=== PATIENT | female | born 1985 | race African-American/Black ===

== ENCOUNTER 2018-05-31 13:15 | Emergency (ER) | payer OTHER ==
[2018-05-31 13:25] VITALS: BP 111/65; PULSE 91; TEMP 98.1; BMI 21.6
--- NOTE | 2018-05-31 13:37 | PDOC ---
History of Present Illness - General Chief Complaint: Asthma Stated Complaint: ASTHAM Time Seen by Provider: 05/31/18 13:30 History Source: Patient Exam Limitations: No Limitations - History of Present Illness Initial Comments: 05/31/18 13:43 32 yr female with c/o cough chest tightness for 2 days no fever no chills. Pt was around a dog and cat 2 days ago had coughing then. no history of intubations. Past History - Past Medical History Allergies/Adverse Reactions: Allergies Allergy/AdvReac Type Severity Reaction Status Date / Time No Known Allergies Allergy Verified 05/31/18 13:20 Home Medications: Ambulatory Orders Albuterol Sulfate Inhaler - [Ventolin Hfa Inhaler -] 1 - 2 inh PO Q4H #1 inhaler 05/31/18 Asthma: Yes COPD: No - Suicide/Smoking/Psychosocial Hx Smoking History: Never smoked Respiratory Specific PMHX - Complaint Specific PMHX Angina: No Bronchitis: No Pneumonia: No Pulmonary Embolus: No TB (Tuberculosis): No Review of Systems - Review of Systems Able to Perform ROS?: Yes Is the patient limited Japanese proficient: No Constitutional: No: Symptoms Reported HEENTM: No: Symptoms Reported Respiratory: Yes: Cough *Physical Exam - Vital Signs Last Vital Signs Temp Pulse Resp BP Pulse Ox 98.1 F 91 H 16 111/65 100 05/31/18 13:21 05/31/18 13:21 05/31/18 13:21 05/31/18 13:21 05/31/18 13:21 - Physical Exam General Appearance: Yes: Nourished, Appropriately Dressed HEENT: positive: EOMI, APOORVA Neck: positive: Supple. negative: Tender Respiratory/Chest: positive: Lungs Clear, Normal Breath Sounds, Decreased Breath Sounds (all marcus). negative: Chest Tender, Rhonchi, Stridor, Wheezing , Hyperresonant Medical Decision Making - Medical Decision Making 05/31/18 13:47 cc: cough for 2 days no fever , no chills. no vomiting or abd pain will give duoneb now pt speaking full sentences no distress *DC/Admit/Observation/Transfer Diagnosis at time of Disposition: Asthma Qualifiers: Asthma severity: mild Asthma persistence: intermittent Asthma complication type : with acute exacerbation Qualified Code(s): J45.21 - Mild intermittent asthma with (acute) exacerbation - Discharge Dispostion Disposition: HOME Condition at time of disposition: Improved - Prescriptions Prescriptions: Albuterol Sulfate Inhaler - [Ventolin Hfa Inhaler -] 1 - 2 inh PO Q4H #1 inhaler - Referrals - Patient Instructions Printed Discharge Instructions: Asthma -- Adult Additional Instructions: drink pleanty of water take claritin or lópez for any sneezing , itchy throat or allergy symptoms use the inhaler every 4hrs for the next 2-3 days follow with your doctor on FRIDAY or FRIDAY Return to ER for any worsening symptoms - Post Discharge Activity
[2018-05-31] MEDS ORDERED: ALBUTEROL SO4 2.5/IPRATROPIUM 0.5 INH SOL 3 ML VIAL.NEB. NEB ONE ×2 (13:42→13:48)
== END 2018-05-31 14:30 | disposition home or self-care (01) ==
LOC: JERFT 13:15
PROC: 3E0F7GC Introduction of Other Therapeutic Substance into Respiratory Tract, Via Natural or Artificial Opening (ICD-10-PCS; principal; 2018-05-31)
DX: J45.21 Mild intermittent asthma with (acute) exacerbation (principal)
CPT/HCPCS: 99281-25

== ENCOUNTER 2018-07-11 20:53 | Emergency (ER) | payer SELFPAY ==
[2018-07-11 21:18] VITALS: BP 106/70; PULSE 84; TEMP 97.4; BMI 21.6
[2018-07-11] MEDS ORDERED: ALBUTEROL SO4 2.5/IPRATROPIUM 0.5 INH SOL 3 ML VIAL.NEB. NEB ONE (21:31)
[2018-07-11] MEDS: ALBUTEROL SO4 2.5/IPRATROPIUM 0.5 INH SOL 3 ML VIAL.NEB. NEB SCH ×4 (21:33→22:17)
--- NOTE | 2018-07-11 21:34 | PDOC ---
History of Present Illness - General Chief Complaint: Cold Symptoms Stated Complaint: ASTHMA,DIFFICULTY BREATHING Time Seen by Provider: 07/11/18 21:17 History Source: Patient Exam Limitations: No Limitations - History of Present Illness Initial Comments: 07/11/18 21:29 HISTORY OF PRESENT ILLNESS: This is a 32-year-old woman past medical history of asthma without any history of intubations or hospital admissions presents emergency department for evaluation of shortness of breath and dry cough for the past 3 days. Patient reports nasal congestion and rhinorrhea but denies any sore throats, headaches, fevers, chills No recent travel or sick contacts. PAST MEDICAL HISTORY: asthma SURGICAL HISTORY: Denies ALLERGIES: No known drug allergies REVIEW OF SYSTEMS General/Constitutional: Denies fever or chills. Denies weakness, weight change. HEENT: Denies change in vision. Denies ear pain or discharge. Denies sore throat. +nasal congestion and rhinorrhea Cardiovascular: Denies chest pain or shortness of breath. Respiratory: Dry cough with audible wheezing. Denies hemoptysis. Gastrointestinal: Denies nausea, vomiting, diarrhea or constipation. Denies rectal bleeding. Genitourinary: Denies dysuria, frequency, or change in urination. Musculoskeletal: Denies joint or muscle swelling or pain. Denies neck or back pain. Skin and breasts: Denies rash or easy bruising. Neurologic: Denies headache, vertigo, loss of consciousness, or loss of sensation. Psychiatric: Denies depression or anxiety. Endocrine: Denies increased thirst. Denies abnormal weight change. Hematologic/Lymphatic: Denies anemia, easy bleeding, or history of blood clots. Allergic/Immunologic: Denies hives or skin allergy. Denies latex allergy. PHYSICAL EXAM General Appearance: Well-appearing, appropriately dressed. No apparent distress , no intoxication. HEENT: EOMI, PERRLA, normal ENT inspection, normal voice, TMs normal, pharynx normal. No conjunctival pallor. No photophobia, scleral icterus. Nasal congestion. Neck: Supple. Trachea midline. No tenderness, rigidity, carotid bruit, stridor , lymphadenopathy, or thyromegaly. Respiratory/Chest: Lungs CTAB. No shortness of breath, chest tenderness, respiratory distress, accessory muscle use. No crackles, rales, rhonchi, stridor , dullness. +Inspiratory wheezing. Speaking in full sentences. Cardiovascular: RRR. S1, S2. No JVD, murmur, bradycardia, tachycardia. Integumentary: Appropriate color, dry, warm. No cyanosis, erythema, jaundice or rash Past History - Past Medical History Allergies/Adverse Reactions: Allergies Allergy/AdvReac Type Severity Reaction Status Date / Time No Known Allergies Allergy Verified 07/11/18 21:16 Home Medications: Ambulatory Orders Albuterol Sulfate Inhaler - [Ventolin Hfa Inhaler -] 1 - 2 inh PO Q4H #1 inhaler 05/31/18 Prednisone [Prednisone 50 MG TABLETS] 50 mg PO DAILY #4 tablet 07/11/18 Asthma: Yes COPD: No - Suicide/Smoking/Psychosocial Hx Smoking History: Never smoked Have you smoked in the past 12 months: No Information on smoking cessation initiated: No Hx Alcohol Use: No Drug/Substance Use Hx: No Respiratory Specific PMHX - Complaint Specific PMHX Angina: No Bronchitis: No Pneumonia: No Pulmonary Embolus: No TB (Tuberculosis): No *Physical Exam - Vital Signs Last Vital Signs Temp Pulse Resp BP Pulse Ox 97.4 F L 84 16 106/70 100 07/11/18 21:14 07/11/18 21:14 07/11/18 21:14 07/11/18 21:14 07/11/18 21:14 Moderate Sedation - Procedure Monitoring Vital Signs: Procedure Monitoring Vital Signs Temperature 97.4 F L 07/11/18 21:14 Pulse Rate 84 07/11/18 21:14 Respiratory Rate 16 07/11/18 21:14 Blood Pressure 106/70 07/11/18 21:14 O2 Sat by Pulse Oximetry (%) 100 07/11/18 21:14 Medical Decision Making - Medical Decision Making 07/11/18 21:32 A/P: 32-year-old woman with acute shortness of breath over 2 days Nasal congestion present Speaking full sentences Scattered Expiratory wheezes present No accessory muscle use Skin appropriate color, warm, dry. Likely asthma exacerbation brought on by upper respiratory infection. Urine , prednisone, DuoNeb's, reassess 07/11/18 22:32 Repeat lung exam reveals clear lungs. Patient reports less work of breathing. Patient is ambulatory without any shortness of breath. Patient states she feels better and is requesting discharge at this time. I'll discharge the patient home with prescription for prednisone 4 days instructions to follow-up with her primary doctor. Patient reports she has a prescription for her metered-dose inhaler and does not require new prescription. I discussed the physical exam findings, ancillary test results and final diagnoses with the patient. I answered all of the patient's questions. The patient was satisfied with the care received and felt comfortable with the discharge plan and treatment plan. The patient will call their primary care physician within 24 hours to arrange follow-up and will return to the Emergency Department with any new, persistent or worsening symptoms. *DC/Admit/Observation/Transfer Diagnosis at time of Disposition: Asthma Qualifiers: Asthma severity: mild Asthma persistence: intermittent Asthma complication type : with acute exacerbation Qualified Code(s): J45.21 - Mild intermittent asthma with (acute) exacerbation URI (upper respiratory infection) Qualifiers: URI type: unspecified viral URI Qualified Code(s): J06.9 - Acute upper respiratory infection, unspecified - Discharge Dispostion Disposition: HOME Condition at time of disposition: Fair Decision to Admit order: No - Prescriptions Prescriptions: Prednisone [Prednisone 50 MG TABLETS] 50 mg PO DAILY #4 tablet - Referrals - Patient Instructions Printed Discharge Instructions: DI for Asthma -- Adult, DI for Viral Upper Respiratory Infection -- Adult Additional Instructions: Rest, drink lots of fluids: Teas, water, soups, Pedialyte Saltwater gargles Steamy showers/seem to face break up mucus Avoid contact with others until fevers and cough resolved Lots of handwashing and good hygiene Continue [id number] medications for symptomatic relief Tylenol or Motrin for fever and pain Continue albuterol pump every 4-6 hours for the next 2 days as needed Prednisone as directed until completed Followup with private physician in one to 2 days Return to emergency department / pediatric hospital for worsened symptoms, fevers, dehydration - Post Discharge Activity
[2018-07-11] MEDS ORDERED: predniSONE 20 MG TABLET (UD) PO ONE (22:07)
[2018-07-11] MEDS ORDERED: predniSONE 20 MG TABLET (UD) ONE (22:11)
== END 2018-07-11 22:47 | disposition home or self-care (01) ==
LOC: JER 20:53 → JERFT 20:53
PROC: 3E0F7GC Introduction of Other Therapeutic Substance into Respiratory Tract, Via Natural or Artificial Opening (ICD-10-PCS; principal; 2018-07-11)
DX: J45.21 Mild intermittent asthma with (acute) exacerbation (principal); J06.9 Acute upper respiratory infection, unspecified
CPT/HCPCS: 84703; 99281-25